=== PATIENT | female | born 1975 | race Caucasian/White ===

== ENCOUNTER 2019-05-15 16:50 | Emergency (ER) | payer BC, SELFPAY ==
--- NOTE | ~2019-05-15 | XR_ITS ---
EXAMINATION: XR hand RT min 3V INDICATION: Right hand pain TECHNIQUE: Three views of the right hand are obtained. COMPARISON: None available FINDINGS: There is no fracture, dislocation, or subluxation. The bones, soft tissues, and joint space s are normal. IMPRESSION: 1. No acute osseous abnormality. Reviewed, dictated and finalized at location A.
[2019-05-15 17:02] VITALS: BP 123/66; PULSE 77; RESP 17; TEMP 36.4; O2SAT 100
--- NOTE | 2019-05-15 17:46 | ED.UPPEXIN ---
HPI - Extremity Injury (Upper) General Chief Complaint: Extremity Injury, Upper Stated Complaint: R hand injury Time Seen by Provider: 05/15/19 16:58 Source: patient Mode of arrival: ambulatory Limitations: no limitations History of Present Illness HPI narrative: Patient presents with chief complaint of pain and tenderness to the dorsal aspect of her hand that began after hitting her hand on the edge of the table earlier today. Patient reports pain with range of motion. Patient denies any loss of sensation or range of motion. Patient denies prior fracture of the hand. Patient denies any other symptoms. Related Data Allergies Allergy/AdvReac Type Severity Reaction Status Date / Time No Known Allergies Allergy Unverified 10/30/12 03:52 Review of Systems Review of Systems: Narrative: CONSTITUTIONAL: Denies fever, chills, or sweats. EYES: Denies visual changes, redness, or discharge. ENT: Denies rhinorrhea, congestion, sore throat, or otalgia. CARDIOVASCULAR: Denies chest pain, palpitations, or edema. RESPIRATORY: Denies cough or dyspnea. GASTROINTESTINAL: Denies abdominal pain, nausea, vomiting, or diarrhea. GENITOURINARY: Denies dysuria or hematuria. SKIN: Denies rash or itching. MUSCULOSKELETAL: Right hand pain denies back pain, or myalgia. NEUROLOGIC: Denies headache, numbness, dizziness, or weakness. PSYCHIATRIC: Denies anxiety or depression. [facility] Family History Family History (Updated 12/24/17 @ 09:59 by DOCTOR UNKNOWN) Mother Hypertension Other Family history of cardiovascular disease Social History Social History Smoking status: Former smoker Second hand tobacco smoke exposure: No Smoking end date: 03/01/97 Alcohol intake: current Substance use type: marijuana Gender identity (if verbalized by the patient): Female Exam Narrative: Exam Narrative: GENERAL: Well-appearing, well-nourished, and in no acute distress. HEAD: Normocephalic, atraumatic. EYES: PERRLA and EOMI. ENT: Nares clear, no rhinorrhea or epistaxis. Airway patent. NECK: no tachypnea no respiratory distress. EXTREMITIES: Normal range of motion. Small abrasion to the dorsal aspect of right hand. No significant erythema. Range of motion and sensation intact. No gross deformity noted. SKIN: Warm, dry, no rash. NEURO: No focal deficits. Alert and oriented x3. PSYCH: Normal mood and affect. Course Vital Signs Vital signs: Vital Signs Temperature 97.6 F 05/15/19 17:02 Pulse Rate 77 05/15/19 17:02 Respiratory Rate 17 05/15/19 17:02 Blood Pressure 123/66 05/15/19 17:02 Pulse Oximetry 100 05/15/19 17:02 Temperature 97.6 F 05/15/19 17:02 Pulse Rate 64 05/15/19 18:09 Respiratory Rate 14 05/15/19 18:09 Blood Pressure 124/63 05/15/19 18:09 Pulse Oximetry 98 05/15/19 18:09 MDM - Extremity Injury (Upper) Imaging Data Radiologist's impression: ITS Impressions Hand X-Ray 05/15/19 17:21 IMPRESSION: 1. No acute osseous abnormality. Discharge Plan Discharge Clinical Impression: Contusion of hand Qualifiers: Encounter type: initial encounter Laterality: right Qualified Code(s): S60.221A - Contusion of right hand, initial encounter Patient Disposition: Home, Self-Care Condition: Stable Instructions: Antibiotic Form, Contusion in Adults (ED) Additional Instructions: Apply cool compress. Tylenol and Motrin if you can tolerate them for discomfort. Wear Sandip wrap for support desired. Follow-up with your primary care for further evaluation if symptoms persist. Return to emergency department if you have any emergent symptoms. Follow-up/Referrals: Ralph Medina DO [Primary Care Provider] - Time of Disposition: 17:51 Discharge Date/Time: 05/15/19 18:11
[2019-05-15 18:09] VITALS: BP 124/63; PULSE 64; RESP 14; O2SAT 98
== END 2019-05-15 18:11 | disposition home or self-care (01) ==
PROVIDERS: Emergency Provider Family Medicine; PCP Internal Medicine
DX: S60.221A Contusion of right hand, initial encounter (principal); Z87.891 Personal history of nicotine dependence; W22.03XA Walked into furniture, initial encounter
CPT/HCPCS: 73130; 99283

== ENCOUNTER 2023-09-11 20:23 | Emergency (ER) | payer SELFPAY ==
--- NOTE | ~2023-09-11 | CT_ITS ---
EXAMINATION: CT abdomen pelvis w con DATE: 09/11/2023 22:15 INDICATION: Lower abdominal pain. TECHNIQUE: Computed tomography (CT) of the abdomen and pelvis was performed with 100 mL Omnipaque-350 intravenous contrast. Automated exposure control and iterative reconstruction technique were employe d. The dose-length product was 820.66 mGy-cm. COMPARISON: None FINDINGS: Mild discoid atelectasis at the lingula and right lower lobe. Heart size is normal. No pericardial or pleural effusion. There are several hypodense hepatic lesions with irregular or ill-defined margins in the large the right hepatic lobe measuring approximately 2 cm in diameter. There is a second Y-sha ped lesion extending 2.4 cm in length but significantly narrowing diameter also in the right hepatic lobe. 5 mm subtle nodular density along the nondependent wall of the fundus of the gallbladder most l ikely a polyp although could not exclude cholelithiasis. No gallbladder wall thickening or pericholec ystic infiltrate stranding to suggest acute cholecystitis. A few tiny splenic calcifications along wi th several calcified periportal and portacaval lymph nodes consistent with old granulomatous disease. Pancreas, bilateral adrenal glands and left kidney are normal. 5 mm low-attenuation right renal cyst . There are few scattered colonic diverticula without adjacent inflammatory stranding to suggest dive rticulitis. Small bowel and appendix are normal. Bladder and anteverted uterus are normal. Tampon wit hin the vaginal vault. There is a gradient of increasing density within a 4.3 cm likely hemorrhagic r ight ovarian cyst. There are couple smaller cysts in the left ovary, with simple fluid attenuation an d the second with similar gradient of increasing dependent density also consistent with a hemorrhagic cyst. Corresponding cysts are evident on the subsequent pelvic ultrasound. No free intraperitoneal g as or fluid. No pathologically enlarged abdominal or pelvic lymphadenopathy. Moderate lower thoracic spondylosis. IMPRESSION: 1. Bilateral ovarian cysts, one in each ovary appearing complex, likely hemorrhagic. 2. Multiple indeterminate right hepatic lesions. Would recommend further evaluation with pre and post contrast MRI or CT. Dr. Mathur discussed these findings with Dr. De Leon at 11:45 AM. Reviewed, dictated and finalized at location A. IMPRESSION: 1. Bilateral ovarian cysts, one in each ovary appearing complex, likely hemorrh agic. 2. Multiple indeterminate right hepatic lesions. Would recommend further evalua tion with pre and postcontrast MRI or CT. Dr. Mathur discussed these findings with Dr. De Leon at 11:45 AM.
--- NOTE | ~2023-09-11 | US_ITS ---
EXAMINATION: US pelvic complete DATE: 09/12/2023 01:12 INDICATION: Assess for ovarian torsion TECHNIQUE: Multiple transabdominal and endovaginal sonographic images of the pelvis were obtained. COMPARISON: None. FINDINGS: The uterus measures 9.7 x 4.7 x 5.8 cm. The endometrial complex measures 13 mm in thickness. The rig ht ovary measures 5.5 x 5.4 x 4.0 cm. The left ovary measures 5.1 x 4.4 x 3.3 cm. Vascular flow ident ified in both ovaries on color Doppler. There are also bilateral ovarian cysts the larger on the righ t measuring 4.4 cm and 2.7 cm on the left. There is trace amount of anechoic free fluid in the cul-de -sac. IMPRESSION: 1. Bilateral ovarian cysts. Otherwise unremarkable pelvic ultrasound with vascular flow identified in both ovaries. Reviewed, dictated and finalized at location A. IMPRESSION: 1. Bilateral ovarian cysts. Otherwise unremarkable pelvic ultrasound with vascu lar flow identified in both ovaries.
[2023-09-11 20:28] VITALS: BP 145/70; PULSE 81; RESP 20; TEMP 36.4; O2SAT 100
--- NOTE | 2023-09-11 21:24 | ED.ABDPAIN ---
HPI - Abdominal Pain General Chief Complaint: Abdominal Pain Stated Complaint: abd pain Time Seen by Provider: 09/11/23 21:08 History of Present Illness HPI narrative: 48-year-old female presents emergency department for evaluation of 4 days of lower abdominal pain. Patient states the pain has been intermittent and between a 1 for out of 10. Patient states he did have 1 episode loose stool and 1 episode of emesis. Patient denies any previous surgical history. Related Data Allergies Allergy/AdvReac Type Severity Reaction Status Date / Time No Known Allergies Allergy Verified 09/11/23 20:30 Review of Systems Review of Systems: All systems reviewed & are unremarkable except as noted in HPI and below PMFSH Family History Family History (Updated 12/24/17 @ 09:59 by DOCTOR UNKNOWN) Mother Hypertension Other Family history of cardiovascular disease Social History Social History Smoking status: Former smoker Second hand tobacco smoke exposure: No Smoking end date: 03/01/97 Alcohol intake: current Substance use type: marijuana Gender identity (if verbalized by the patient): Female Exam Narrative: APPEARANCE: Well appearing, no pain, no distress, well-nourished. HEAD: normocephalic, atraumatic. EYES: PERRLA/EOMI, conjunctivae clear. NOSE: Normal no drainage EARS:TMS clear with good light reflex. THROAT: Pharynx clear, no exudate. NECK: Supple. No adenopathy, no masses. RESPIRATORY: Airway patent, respirations nonlabored. Clear to auscultation bilaterally, no rales, rhonchi, wheezing. CARDIOVASCULAR: Regular rate and rhythm without murmurs rubs or gallops. ABDOMINAL: Lower abdominal pain with no CVA or low abdominal tenderness to palpation MUSCULOSKELETAL: Moves all extremities. Strength/ROM intact, No edema, No calf tenderness. NEURO: Alert. Cranial nerves II through XII intact. Good gait. Good coordination SKIN: Warm, dry. Normal Color PSYCHIATRIC: Normal affect/mood. Course Course Emergency Course: Patient was diagnosed with ovarian cyst and encouraged to have close follow-up with her OB Gyne. Patient was provided medications for pain control. Vital Signs Vital signs: Vital Signs Temperature 97.5 F L 09/11/23 20:28 Pulse Rate 81 09/11/23 20:28 Respiratory Rate 20 09/11/23 20:28 Blood Pressure 145/70 H 09/11/23 20:28 Pulse Oximetry 100 09/11/23 20:28 Oxygen Delivery Room Air 09/11/23 20:28 Temperature 98.3 F 09/11/23 23:52 Pulse Rate 75 09/12/23 03:24 Respiratory Rate 12 09/12/23 03:24 Blood Pressure 106/62 09/12/23 03:24 Pulse Oximetry 99 09/12/23 03:24 Oxygen Delivery Room Air 09/11/23 20:28 MDM - Abdominal Pain MDM Narrative Medical decision making narrative: 48-year-old female presented emergency department for evaluation for lower abdominal pain. Patient is afebrile with no leukocytosis and a stable hemoglobin at 12.0. Patient has no significant abnormalities on her CMP including normal lipase. UA was negative for infection but did have +[address] scan was ordered to evaluate for kidney stones and was negative for stones but did show concern for ovarian cyst. Ultrasound was ordered and does show bilateral ovarian cysts. Largest is on the right measuring 4 cm. Normal blood flow to both ovaries. Patient was updated the results of the workup patient was comfortable the plan for discharge and close follow-up with her OB [facility] at [facility] Differential Diagnosis Differential diagnosis: Likely abdominal pain, acute appendicitis, calculus of kidney, constipation, diverticulitis, endometriosis, gastroenteritis, pancreatitis and small bowel obstruction Lab Data Attestation: I reviewed the patient's lab results. 09/11/23 21:18 09/11/23 21:18 Labs: Lab Results 09/11/23 Range/Units 21:18 WBC 9.6 (4.5-10.0) K/mm3 RBC 4.50 (4.2-5.4) M/mm3 Hgb 12.0 (12.0-15.0) g/dL Hct 37.7 (37.0-47.0)
[2023-09-11 21:27] LABS: Basophils Absolute Auto 0.1 K/mm3 (0.0-0.1); Basophils Percent Auto 0.6 % (0.2-1.2); Eosinophils Absolute Auto 0.1 K/mm3 (0-0.3); Eosinophils Percent Auto 0.7 % (0-4.4); Hematocrit 37.7 % (37.0-47.0); Immature Granulocyte Absolute 0.02 K/mm3 (0.00-0.031); Immature Granulocyte Percent A 0.2 % (0-0.5); Lymphocytes Percent Auto 31.3 % (18.3-44.2); Mean Corpuscular HGB Conc 31.8 g/dl (32-36); Mean Corpuscular Hemoglobin 26.7 pg (26-34); Mean Corpuscular Volume 83.8 fl (80-100); Mean Platelet Volume 9.6 fl (7.4-10.4); Monocytes Absolute Auto 0.5 K/mm3 (0.1-0.6); Monocytes Percent Auto 5.2 % (2.6-8.5); Neutrophils Absolute Auto 5.9 K/mm3 (1.3-6.7); Platelet Count Result 324 k/mm3 (150-375); Red Cell Distribution Width 15.3 % (11.5-14.5); White Blood Count 9.6 K/mm3 (4.5-10.0)
[2023-09-11 21:33] LABS: Appearance Urine Clear (Clear); Bacteria Urine None Seen /hpf; Bilirubin Urine Negative (Negative); Blood Urine 1+ (Negative); Color Urine Yellow (Yellow); Glucose Urine UA Negative (Negative); Ketones Urine Negative (Negative); Leukocyte Esterase Ur Negative LEU/UL (Negative); Nitrate Urine Negative (Negative); Non Pathogenic Casts 0-2; Protein Urine Negative (Negative); RBC Urine 0-2 /hpf (0-2); Specific Grav Ur 1.006 (1.001-1.035); Squamous Epithelial Cell Urine None Seen /hpf (Few); Urobilinogen Urine 0.2 mg/dL (<2.0); WBC Urine 0-5 /hpf (0-3); pH Urine 5.5 (5.0-9.0)
[2023-09-11 21:34] LABS: Add Urine Microscopic? YES
[2023-09-11 21:46] LABS: Alanine Aminotransferase 15 U/L (6-35); Albumin Level 4.6 g/dL (3.5-5.1); Alkaline Phosphatase 50 U/L (38-126); Anion Gap 11 mmol/L (4-12); Aspartate Amino Transferase 16 U/L (14-36); Bilirubin,Total 0.6 mg/dL (0.2-1.3); Blood Urea Nitrogen 12 mg/dL (7-17); Calcium 8.8 mg/dL (8.4-10.2); Carbon Dioxide 24 mmol/L (22-30); Chloride 103 mmol/L (98-107); Estimated CRCL calculation 106 ml/min; Estimated Glomerular Filt Rate > 60; Glucose 93 mg/dL (65-110); Lipase 99 U/L (23-300); Potassium 4.2 mmol/L (3.4-5.0); Sodium 138 mmol/L (137-145)
[2023-09-11] MEDS: SODIUM CHLORIDE 0.9% IV 1,000 ML 999 ML IV CONT (21:48)
[2023-09-11 21:50] VITALS: BP 115/56; PULSE 65; RESP 18; O2SAT 100
--- NOTE | 2023-09-11 22:04 | PC.NURSE ---
Patient taken to CT at this time.
[2023-09-11 23:52] VITALS: BP 124/77; PULSE 69; RESP 20; TEMP 36.8; O2SAT 100
--- NOTE | 2023-09-12 00:56 | PC.NURSE ---
US here to take patient via w/c.
[2023-09-12 03:24] VITALS: BP 106/62; PULSE 75; RESP 12; O2SAT 99
== END 2023-09-12 03:35 | disposition home or self-care (01) ==
PROVIDERS: Emergency Provider Emergency Medicine
DX: N83.209 Unspecified ovarian cyst, unspecified side (principal); Z87.891 Personal history of nicotine dependence
CPT/HCPCS: 36415; 74177; 76856; 80053; 81001; 83690; 85025; 96360; 96361; 99284; J7030; Q9967